=== PATIENT | female | born 1990 | race Caucasian/White ===

== ENCOUNTER → 2017-10-04 | Outpatient (CLI) | payer OTHER ==
[2015-10-29 14:43] VITALS: BP 128/64
== END ==
LOC: LABRHC 10:41
PROVIDERS: ATTEND Physician Assistant
DX: Z12.4 Encounter for screening for malignant neoplasm of cervix (principal)
CPT/HCPCS: 88148; G0143

== ENCOUNTER 2017-10-23 10:30 | Outpatient (CLI) | payer OTHER ==
[2015-10-29 14:43] VITALS: BP 128/64
== END 2017-10-23 10:32 ==
LOC: LABRHC 10:30
PROVIDERS: ATTEND Physician Assistant
DX: L98.9 Disorder of the skin and subcutaneous tissue, unspecified (principal)

== ENCOUNTER 2018-07-09 08:48 | Outpatient (CLI) | payer OTHER ==
[2015-10-29 14:43] VITALS: BP 128/64
--- NOTE | 2018-07-09 09:23 | Diagnostic Imaging Report ---
ROBBIE GILMORE [facility] [address] [id number] Report Submission Date: Jul 09, 2018 9:19:14 AM CDT Patient Study Name: LAUREN RICCI Date: Jul 09, 2018 8:52:25 AM CDT Modality Type: DX Gender: F Description: SHOULDER 2 VIEWS OR MORE : 89 Institution: [facility] Physician: ROBBIE GILMORE Examination: Plain film right shoulder History: PT FELL DOWN THE STAIRS, LIMITED ROM Comparison exams: None provided Findings: 3 views of the right shoulder demonstrate normal cortical margins. No evidence for fracture or dislocation. No soft tissue abnormality Impression: No acute osseous process. Electronically signed on Jul 09, 2018 9:19:14 AM CDT by: Darion HA
== END 2018-07-09 08:50 ==
LOC: RAD 08:48
PROVIDERS: ATTEND Family Medicine
DX: S49.91XA Unspecified injury of right shoulder and upper arm, initial encounter (principal)
CPT/HCPCS: 73030

== ENCOUNTER 2019-03-10 09:32 | Outpatient (CLI) | payer OTHER ==
[2015-10-29 14:43] VITALS: BP 128/64
[2019-03-10 11:08] LABS: eGFR (Non-African) > 60
== END 2019-03-10 09:37 ==
LOC: LAB 09:32
PROVIDERS: ATTEND Nurse Practitioner Family
DX: R53.83 Other fatigue (principal)
CPT/HCPCS: 36415; 80053; 84443

== ENCOUNTER 2019-03-10 12:36 | Outpatient (CLI) | payer OTHER ==
[2015-10-29 14:43] VITALS: BP 128/64
== END 2019-03-10 12:41 ==
LOC: LABRHC 12:36
PROVIDERS: ATTEND Nurse Practitioner Family
DX: Z01.419 Encounter for gynecological examination (general) (routine) without abnormal findings (principal)
CPT/HCPCS: 88148; G0143